=== PATIENT | female | born 1960 | race Caucasian/White ===

== ENCOUNTER → 2025-03-19 | Outpatient (CLI) | payer MEDICARE ==
--- NOTE | 2025-03-20 09:49 | HMCIMG ---
EXAMINATION: NONCONTRAST MRI OF RIGHT HIP. HISTORY: Pain. COMPARISON: None provided. TECHNIQUE: Multiplanar, multisequence MR images of the right hip are submitted. FINDINGS: There is normal bone marrow signal without evidence of fracture, avascular necrosis, or osteomyelitis. There is moderate to advance anterior and superior femoroacetabular chondral thinning and mild subchondral marrow edema. There is anterior superior labral tear. There is mild physiologic joint fluid. There is moderate superior acetabular osteophyte. There is mild hyperintense signal at the foveal attachment of the ligamentum teres. The musculature of the pelvis, including the piriformis muscles, appear within normal limits. The iliopsoas tendon appears intact. There is mild hamstring origin tendinosis with enthesophytes. There is no iliopsoas or greater trochanteric bursitis. Visualized aspect of the right sciatic nerve appears within normal limits. Urinary bladder is normal. IMPRESSION: 1. Moderate to advanced anterior and superior femoroacetabular chondral thinning with mild subchondral marrow edema. 2. Anterior superior labral tear. /[place]
== END | disposition home or self-care (01) ==
LOC: RAH 13:41
PROVIDERS: ATTEND Orthopaedic Surgery
DX: S73.101A Unspecified sprain of right hip, initial encounter (principal); M67.853 Other specified disorders of tendon, right hip; M25.751 Osteophyte, right hip; M25.451 Effusion, right hip; M76.9 Unspecified enthesopathy, lower limb, excluding foot; X58.XXXA Exposure to other specified factors, initial encounter; Y93.89 Activity, other specified; Y92.89 Other specified places as the place of occurrence of the external cause; Y99.8 Other external cause status
CPT/HCPCS: 73721

== ENCOUNTER → 2025-04-02 | Outpatient (CLI) | payer MEDICARE ==
--- NOTE | 2025-04-02 22:13 | HMCIMG ---
EXAM: THYROID/NECK ULTRASOUND Technique: High-resolution grayscale ultrasound with color Doppler of the thyroid and cervical soft tissues. Contrast: None. Clinical Information: Thyroid nodule. Comparison: None Findings: Thyroid: Right lobe measures 4.0 ??? 1.3 ??? 1.1 cm with homogeneous echotexture. Left lobe measures 2.9 ??? 1.0 ??? 1.3 cm with homogeneous echotexture. Isthmus thickness 0.3 cm. Right lobe nodule (superior pole): Hypoechoic, solid-appearing nodule measuring 0.4 ??? 0.3 ??? 0.3 cm (4 ??? 3 ??? 3 mm); [id number]-[id number] shape; smooth margins; no calcifications; internal vascularity not specified. Cervical lymph nodes: Small bilateral cervical nodes are present with sizes up to 0.7 ??? 0.4 ??? 0.6 cm on the right and up to 0.6 ??? 0.4 ??? 0.6 cm on the left; morphology consistent with reactive/inflammatory nodes on size and description. Impression: * Right superior pole thyroid nodule, 4 mm, hypoechoic, [id number]-[id number] with smooth margins and no calcifications. ACR TI-RADS features: composition solid (2 points), echogenicity hypoechoic (2 points), shape paype-hzod-wiso (0), margins smooth (0), echogenic foci none (0) ? TR4 (4 points). Management: Per ACR TI-RADS, nodules <5 mm require no FNA or follow-up, even if TR4. Reassurance and routine clinical care. * Mildly enlarged but reactive-appearing bilateral cervical lymph nodes by size/morphology on ultrasound; no suspicious john features are described. Correlate with any concurrent upper aerodigestive symptoms or infection; no specific imaging follow-up is required if clinically improving. /[place]
--- NOTE | 2025-04-05 06:19 | HMCIMG ---
CLINICAL INDICATION: Age-related osteoporosis without current pathological fracture COMPARISON: None available TECHNIQUE: Bone densitometry is performed of the lumbar spine and left hip. FINDINGS: Total BMD of lumbar spine is 1.152 g/cm2 with a T-score of 1.0 and Z-score is 2.8. Total BMD of left hip is 0.949 g/cm2 with a T-score of 0.1 and Z-score is 1.3. FRAX SCORE: The 10 year fracture risk for a major osteoporotic fracture and hip fracture 8% IMPRESSION: 1. Osteopenia left hip 2. Normal lumbar spine. 3. I would recommend follow-up in 13 months World Health Organization criteria for BMD interpretation classify patients as Normal (T-score at or above -1.0), Osteopenic (T-score between -1.0 and -2.5), or Osteoporotic (T-score at or below -2.5). FRAX SCORE: A. All treatment decisions require clinical judgment and consideration of individual patient factors, including patient preferences, comorbidities, previous drug use, risk factors not captured in the FRAX model (e.g., frailty, falls, vitamin D deficiency, increased bone turnover, interval significant decline in bone density) and possible llocs-we-ooqm-estimation of fracture risk by FRAX. B. In addition, the NOF Guide recommends that FDA-approved medical therapies be considered in postmenopausal women and men age greater than or equal to 50 years with a: i. Hip or vertebral (clinical or morphometric) fracture. ii. T-score of less than or equal to -2.5 at the spine or hip. iii. Ten-year fracture probability by FRAX of greater than or equal to 3% for hip fracture of greater than or equal to 20% for major osteoporotic fracture.
== END | disposition home or self-care (01) ==
LOC: RAH 12:30
PROVIDERS: ATTEND Nurse Practitioner Family
DX: E04.1 Nontoxic single thyroid nodule (principal); M81.0 Age-related osteoporosis without current pathological fracture; M85.852 Other specified disorders of bone density and structure, left thigh
CPT/HCPCS: 76536; 77080